=== PATIENT | female | born 1985 | race Two or more races ===

== ENCOUNTER → 2016-11-09 | Outpatient (CLI) | payer BC ==
[~2016-11-09] MED LIST: B-12100010 PO; LIDOCAINE 1% SDV INJ 30 ML VIAL As Ordered ONE; MIDAZOLAM INJ 2 MG/2 ML VIAL (J2250) As Ordered ONE; ONDANSETRON 4MG/2ML VIAL (J2405) As Ordered ONE; PROP60TA14 PO; TIZA4CAP3 PO; TRINTAB PO; VITA400T2 PO; fentaNYL 100 MCG/2 ML INJECTION (J3010) As Ordered ONE
[2016-11-09 17:56] LABS: GLUCOSE CSF 47 MG/DL (40-75)
[2016-11-09 18:54] LABS: APPEARANCE, CSF CLEAR (CLEAR); COLOR, CSF COLORLESS (COLORLESS); CSF TUBE# CELL CNT TUBE 3; WBC CSF AUTO 0 /mm3 (0-10)
[2016-11-09 18:55] LABS: CSF DIFF IF INDICATED? NO (NO); RBC CSF AUTO 7 /mm3 (0-0)
[2016-11-09 18:59] LABS: CSF DILUENT LOT # 6221
[2016-11-10 11:23] LABS: CSF GROUP B STREP NEGATIVE (NEGATIVE); CSF H. INFLUENZA NEGATIVE (NEGATIVE); CSF N MENINGITIDIS ACYW135 NEGATIVE (NEGATIVE); CSF STREP PNUEMO NEGATIVE (NEGATIVE)
[2016-11-29 14:20] LABS: OLIGOCLONAL BANDS, CSF Bands seen in gamma (No Bands)
== END ==
LOC: M PAIN 13:00
PROVIDERS: ATTEND Anesthesiology
DX: G37.9 Demyelinating disease of central nervous system, unspecified (principal)
CPT/HCPCS: 36415; 62270; 82784; 82945; 83916; 84157; 87015; 87070; 87076; 87102; 87205; 87252; 87802; 87899; 88108; 88313; 89050; 99152; 99153; J2250; J2405; J3010

== ENCOUNTER → 2017-01-12 | Outpatient (REF) | payer BC ==
[~2017-01-12] MED LIST changes: -LIDOCAINE 1% SDV INJ 30 ML VIAL As Ordered ONE; -MIDAZOLAM INJ 2 MG/2 ML VIAL (J2250) As Ordered ONE; -ONDANSETRON 4MG/2ML VIAL (J2405) As Ordered ONE; -TRINTAB PO; +TRINTAB3 PO; -fentaNYL 100 MCG/2 ML INJECTION (J3010) As Ordered ONE
[2017-01-12 16:20] LABS: BASO % 0.4 % (0.0-1.0); EOS # 0.3 K/mm3 (0.0-0.50); EOS % 2.4 % (0.0-3.0); LARGE UNSTAINED CELL # 0.1 K/mm3 (0.0-0.4); LARGE UNSTAINED CELL % 0.9 % (0.0-4.0); LYMPH # 3.3 K/mm3 (1.5-4.5); LYMPH % 23.6 % (24.0-44.0); MEAN CORPUSCULAR HEMOGLOBIN 31.9 pg (27.0-33.0); MEAN CORPUSCULAR VOLUME 91.1 fl (80.0-96.0); MONO # 0.6 K/mm3 (0.0-0.8); MONO % 4.2 % (0.0-5.0); NEUTROPHILS # 9.1 K/mm3 (1.8-7.7); NEUTROPHILS % 68.5 % (36.0-66.0); PLATELET COUNT, AUTOMATED 362 k/mm3 (150-450); RED CELL DISTRIBUTION WIDTH 12.4 % (11.5-14.5); WHITE BLOOD COUNT 13.3 K/mm3 (4.0-10.0)
== END ==
LOC: M LABNEURO 16:01
PROVIDERS: ATTEND Psychiatry & Neurology Neurology
DX: G35 Multiple sclerosis (principal)

== ENCOUNTER → 2017-05-10 | Outpatient (REF) | payer BC ==
[2017-05-10 15:33] LABS: BASO # 0.1 10^3/uL (0.0-0.2); BASO % 0.5 % (0.0-1.0); EOS # 0.5 10^3/uL (0.0-0.50); EOS % 3.2 % (0.0-3.0); IMMATURE GRANULOCYTE % 0.3 % (0-0); LYMPH # 3.5 10^3/uL (1.5-4.5); LYMPH % 24.1 % (24.0-44.0); MEAN CORPUSCULAR HEMOGLOBIN 30.9 pg (27.0-33.0); MEAN CORPUSCULAR HGB CONC 33.9 g/dl (32.0-36.5); MEAN CORPUSCULAR VOLUME 91.3 fl (80.0-96.0); MONO # 0.7 10^3/uL (0.0-0.8); MONO % 4.9 % (0.0-5.0); NEUTROPHILS # 9.7 10^3/uL (1.8-7.7); PLATELET COUNT, AUTOMATED 354 10^3/uL (150-450); RED CELL DISTRIBUTION WIDTH 12.3 % (11.5-14.5); WHITE BLOOD COUNT 14.5 10^3/uL (4.0-10.0)
[2017-05-10 15:52] LABS: ERYTHROCYTE SEDIMENTATION RATE 16 mm/hr (0-20)
== END ==
LOC: M LABNEURO 14:38
PROVIDERS: ATTEND Psychiatry & Neurology Neurology
DX: G35 Multiple sclerosis (principal)

== ENCOUNTER → 2021-08-12 | Outpatient (CLI) | payer BC ==
[~2021-08-12] MED LIST changes: +TIZA4CAP PO; -TIZA4CAP3 PO; +TRINTAB PO; -TRINTAB3 PO
== END ==
LOC: M RAD 14:21
PROVIDERS: ATTEND Family Medicine
DX: M47.816 Spondylosis without myelopathy or radiculopathy, lumbar region (principal)

== ENCOUNTER 2023-09-22 10:21 | Outpatient (CLI) | payer MEDICAID, MEDICARE, OTHER ==
[~2023-09-22] VITALS: Ht 167.6 cm; Wt 89.5 kg
[2023-09-22] MEDS ORDERED: diphenhydrAMINE 25MG CAP PO ONE (11:00)
[2023-09-22 11:10] VITALS: BP 132/67; O2SAT 98
[2023-09-22] MEDS: methylPREDNISolone 125MG 2ML VIAL IV ONE (11:45)
[2023-09-22] MEDS: ACETAMINOPHEN TAB 650MG DOSE (2X325MG) PO ONE (11:45)
[2023-09-22] MEDS: diphenhydrAMINE 50MG/ML VIAL IV ONE (11:45)
[2023-09-22] MEDS: OCRELIZUMAB 600 MG in NS 500 ML IV ONE (12:14)
[2023-09-22 12:45] VITALS: BP 125/58; O2SAT 97
[2023-09-22 16:05] VITALS: BP 130/62; O2SAT 97
== END 2023-09-22 16:20 ==
LOC: M INFU 10:21
PROVIDERS: ATTEND Psychiatry & Neurology Neurology
DX: G35 Multiple sclerosis (principal)
CPT/HCPCS: 96365; 96366; 96375; J1200; J2350; J2919

== ENCOUNTER 2024-03-26 10:48 | Outpatient (CLI) | payer MEDICARE, OTHER ==
[2024-03-26] VITALS (7 sets, daily range): BP systolic 118–161; BP diastolic 54–72; O2SAT 97–99
[~2024-03-26] VITALS: Ht 165.1 cm; Wt 86.0 kg
[2024-03-26] MEDS: diphenhydrAMINE 25MG CAP PO ONE (11:13)
[2024-03-26] MEDS: methylPREDNISolone 125MG 2ML VIAL IV ONE (11:13)
[2024-03-26] MEDS: ACETAMINOPHEN TAB 650MG DOSE (2X325MG) PO ONE (11:13)
[2024-03-26] MEDS: OCRELIZUMAB 600 MG in NS 500 ML IV ONE (11:45)
== END 2024-03-26 15:40 ==
LOC: M INFU 10:48
PROVIDERS: ATTEND Psychiatry & Neurology Neurology
DX: G35 Multiple sclerosis (principal)
CPT/HCPCS: 96365; 96366; 96367; J2350; J2919

== ENCOUNTER 2024-09-21 13:19 | Outpatient (CLI) | payer MEDICARE, OTHER ==
[~2024-09-21] VITALS: Ht 167.6 cm; Wt 94.5 kg
[2024-09-21] VITALS (8 sets, daily range): BP systolic 106–141; BP diastolic 51–81; O2SAT 96–98
[2024-09-21] MEDS: methylPREDNISolone 125MG 2ML VIAL IV ONE (13:58)
[2024-09-21] MEDS: diphenhydrAMINE 25MG CAP PO ONE (13:58)
[2024-09-21] MEDS: ACETAMINOPHEN 325 MG TAB PO ONE (13:58)
[2024-09-21] MEDS: OCRELIZUMAB 600 MG in NS 500 ML IV ONE (14:21)
== END 2024-09-21 19:05 | disposition home or self-care (01) ==
LOC: M INFU 13:19
PROVIDERS: ATTEND Psychiatry & Neurology Neurology
DX: G35 Multiple sclerosis (principal)
CPT/HCPCS: 96365; 96366; 96375; J2350; J2919

== ENCOUNTER 2025-04-10 08:37 | Outpatient (CLI) | payer MEDICARE ==
[~2025-04-10] VITALS: Ht 167.6 cm; Wt 90.9 kg
[2025-04-10 08:50] VITALS: BP 138/71; O2SAT 98
[2025-04-10] MEDS: ACETAMINOPHEN 325 MG TAB PO ONE (09:00)
[2025-04-10] MEDS: OCRELIZUMAB 600 MG in NS 500 ML IV ONE (09:45)
[2025-04-10 10:15] VITALS: BP 107/57; O2SAT 96
[2025-04-10 10:45] VITALS: BP 110/60; O2SAT 97
[2025-04-10 11:45] VITALS: BP 114/68; O2SAT 98
[2025-04-10 12:45] VITALS: BP 120/66; O2SAT 99
== END 2025-04-10 14:20 | disposition home or self-care (01) ==
LOC: M INFU 08:37
PROVIDERS: ATTEND Psychiatry & Neurology Neurology
DX: G35.D Multiple sclerosis, unspecified (principal)
CPT/HCPCS: 96365; 96366; J2350; J2919